=== PATIENT | female | born 1995 | race Caucasian/White ===

== ENCOUNTER 2016-07-23 05:41 | Day surgery (SDC) | payer OTHER ==
[2016-07-23] VITALS (7 sets, daily range): BP systolic 96–105; BP diastolic 56–76; PULSE 68–88; TEMP 97.8–98.8
[~2016-07-23] VITALS: Ht 160 cm; Wt 57.0 kg
[2016-07-23] MEDS ORDERED: BLISOVI 24 FE1 EACH PO (06:48)
[2016-07-23] MEDS ORDERED: NORCO 325 MG-7.1 TAB PO (10:00)
[2016-07-23] MEDS ORDERED: CEPHALEXIN500 M1 PO (10:00)
[2016-07-24 14:50] VITALS: BP 93/66; PULSE 87; TEMP 98.9
== END 2016-07-23 11:20 | disposition home or self-care (01) ==
LOC: SDCO 05:41
DX: L05.91 Pilonidal cyst without abscess (principal); F41.9 Anxiety disorder, unspecified; Z79.899 Other long term (current) drug therapy; Z79.3 Long term (current) use of hormonal contraceptives
CPT/HCPCS: J0690; J1100; J2175; J2250; J2405; J2704; J3010; J7120